=== PATIENT | male | born 1960 | race African-American/Black ===

== ENCOUNTER 2017-09-18 08:35 | Emergency (ER) | payer OTHER ==
[~2017-09-18] VITALS: Ht 172.7 cm; Wt 72.6 kg
[~2017-09-18 08:35] MED LIST: NOHOMEMEDICATIONS
[2017-09-18 09:00] VITALS: BP 141/93
== END 2017-09-18 09:01 | disposition home or self-care (01) ==
LOC: ER 08:35
DX: S01.112D Laceration without foreign body of left eyelid and periocular area, subsequent encounter (principal); X58.XXXD Exposure to other specified factors, subsequent encounter

== ENCOUNTER 2017-10-26 10:56 | Emergency (ER) | payer OTHER ==
[~2017-10-26] VITALS: Ht 172.7 cm; Wt 77.1 kg
[2017-10-26 12:22] LABS: HEMATOCRIT 40.4 % (42.0-52.0); HEMOGLOBIN 14.1 gm/dL (14.0-18.0); MCH 34.3 pg (26.0-34.0); MCHC 34.8 g/dL (28.0-37.0); MCV 98.6 fL (80.0-100.0); PLATELET COUNT 182 thou/uL (150-400); RDW 13.9 % (10.5-14.5); WBC 3.4 thou/uL (4.0-11.0)
[2017-10-26 12:40] LABS: CREATININE 0.9 mg/dL (0.7-1.3); POTASSIUM 4.4 mmol/L (3.5-5.1)
[2017-10-26 12:44] LABS: ALBUMIN 4.1 g/dL (3.4-5.0); TOTAL BILIRUBIN 0.4 mg/dL (<0.1-1.0)
[2017-10-26 12:55] LABS: ABSOLUTE NEUTROPHILS 2.4 thou/uL (1.4-8.2)
[2017-10-26] MEDS ORDERED: NAPROSYN500 MG PO (12:58)
[2017-10-26 13:03] VITALS: BP 126/90
== END 2017-10-26 13:05 | disposition home or self-care (01) ==
LOC: ER 10:56
PROVIDERS: Physician Assistant
DX: M79.601 Pain in right arm (principal); M25.552 Pain in left hip; F17.210 Nicotine dependence, cigarettes, uncomplicated

== ENCOUNTER 2017-11-16 02:30 | Emergency (ER) | payer OTHER ==
[~2017-11-16] VITALS: Ht 172.7 cm; Wt 72.6 kg
[~2017-11-16 02:30] MED LIST changes: +NAPROSYN500 MG PO
[2017-11-16] MEDS ORDERED: NAPROSYN500 MG PO (03:09)
[2017-11-16 03:36] VITALS: BP 125/86
== END 2017-11-16 03:37 | disposition home or self-care (01) ==
LOC: ER 02:30
DX: M67.441 Ganglion, right hand (principal); F10.129 Alcohol abuse with intoxication, unspecified; M25.511 Pain in right shoulder; F17.210 Nicotine dependence, cigarettes, uncomplicated

== ENCOUNTER → 2018-01-01 | Emergency (ER) | payer OTHER ==
[~2018-01-01] VITALS: Ht 172.7 cm; Wt 72.6 kg
[2018-01-01 06:28] VITALS: BP 142/76
== END ==
LOC: ER 03:37
DX: S02.2XXA Fracture of nasal bones, initial encounter for closed fracture (principal); S00.12XA Contusion of left eyelid and periocular area, initial encounter; M25.552 Pain in left hip; F17.210 Nicotine dependence, cigarettes, uncomplicated; Y04.2XXA Assault by strike against or bumped into by another person, initial encounter; Y93.89 Activity, other specified; Y92.89 Other specified places as the place of occurrence of the external cause; Y99.8 Other external cause status

== ENCOUNTER 2018-08-04 12:05 | Emergency (ER) | payer OTHER ==
[~2018-08-04] VITALS: Ht 172.7 cm; Wt 72.6 kg
[2018-08-04 13:47] LABS: URINE BILIRUBIN NEGATIVE (Negative); URINE BLOOD NEGATIVE (Negative); URINE CLARITY CLEAR; URINE COLOR YELLOW; URINE GLUCOSE-RANDOM* NEGATIVE (Negative); URINE KETONES NEGATIVE (Negative); URINE LEUKOCYTES NEGATIVE (Negative); URINE NITRITE NEGATIVE (Negative); URINE PROTEIN (DIPSTICK) NEGATIVE (Negative); URINE SPECIFIC GRAVITY <= 1.005 (1.005-1.035); URINE UROBILINOGEN 0.2 E.U./dl (0.2-1.0)
[2018-08-04] MEDS ORDERED: HYDROCODONE-AP1 EAC6 PO (14:04)
[2018-08-04] MEDS ORDERED: NAPROSYN500 MG PO (14:04)
[2018-08-04] MEDS ORDERED: LIDOCAINE PAIN1 EACH TOP (14:04)
[2018-08-04 14:23] VITALS: BP 140/95
== END 2018-08-04 14:23 | disposition home or self-care (01) ==
LOC: ER 12:05
PROVIDERS: Physician Assistant
DX: S22.31XA Fracture of one rib, right side, initial encounter for closed fracture (principal); S70.02XA Contusion of left hip, initial encounter; S39.012A Strain of muscle, fascia and tendon of lower back, initial encounter; F17.210 Nicotine dependence, cigarettes, uncomplicated; W01.10XA Fall on same level from slipping, tripping and stumbling with subsequent striking against unspecified object, initial encounter; Y93.89 Activity, other specified; Y92.89 Other specified places as the place of occurrence of the external cause; Y99.8 Other external cause status

== ENCOUNTER 2018-08-14 18:27 | Emergency (ER) | payer OTHER ==
[~2018-08-14] VITALS: Ht 172.7 cm; Wt 72.7 kg
[~2018-08-14 18:27] MED LIST changes: +HYDROCODONE-AP1 EAC6 PO; +LIDOCAINE PAIN1 EACH TOP
[2018-08-14 19:44] LABS: HEMATOCRIT 39.3 % (42.0-52.0); HEMOGLOBIN 13.5 gm/dL (14.0-18.0); MCH 33.5 pg (26.0-34.0); MCHC 34.4 g/dL (28.0-37.0); MCV 97.5 fL (80.0-100.0); PLATELET COUNT 132 thou/uL (150-400); RBC 4.03 mil/uL (4.50-6.00); RDW 13.7 % (10.5-14.5); WBC 5.8 thou/uL (4.0-11.0)
[2018-08-14 19:58] LABS: CALCIUM 9.4 mg/dL (8.5-10.1); POTASSIUM 3.9 mmol/L (3.5-5.1)
[2018-08-14 20:03] LABS: ABSOLUTE NEUTROPHILS 4.9 thou/uL (1.4-8.2); ANISOCYTOSIS 1+
[2018-08-14 20:12] LABS: ALBUMIN 3.5 g/dL (3.4-5.0); TOTAL BILIRUBIN 0.5 mg/dL (<0.1-1.0); TOTAL PROTEIN 8.2 g/dL (6.4-8.2)
[2018-08-14] MEDS ORDERED: ZPAK PO (21:00)
[2018-08-14 21:28] VITALS: BP 108/56
[2018-08-15] MEDS ORDERED: VENTOLIN HFA 1818 GM INH (04:34)
[2018-08-15] MEDS ORDERED: AUGMENTIN 500-1 EACH PO (04:34)
[2018-08-15] MEDS ORDERED: PREDNISONE 20 M20 MG PO (04:34)
== END 2018-08-14 21:20 | disposition home or self-care (01) ==
LOC: ER 18:27
PROVIDERS: Nurse Practitioner
DX: J18.9 Pneumonia, unspecified organism (principal); F17.210 Nicotine dependence, cigarettes, uncomplicated

== ENCOUNTER 2018-08-15 02:00 | Emergency (ER) | payer OTHER ==
[~2018-08-15] VITALS: Ht 172.7 cm; Wt 72.6 kg
--- NOTE | ~2018-08-15 | EKG ---
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 : 1960 Requested By: Michael Chan Order Number: [id number] MD: Measurements Intervals [place] Rate: 78 P: 79 MN: 164 QRS: 79 QRSD: 99 T: 39 QT: 389 QTc: 444 Interpretive Statements Sinus rhythm Low voltage, extremity leads Minimal ST elevation, inferior leads Baseline wander in lead(s) V6 Compared to ECG 01/26/2018 12:06:50 ST (T wave) deviation now present [email or web address] ��������������������������������������������� ���������������������������������������� By: ��������������������������������������������� 3 030 Epiphany Epiphany, /EPI
[~2018-08-15 02:00] MED LIST changes: +ZPAK PO
[2018-08-15 03:28] LABS: BE(vivo) 1.1 mmol/L (-2 to +3); HCO3 25.5 mmol/L (22.0-26.0); PCO2 39.6 mmHg (35.0-45.0); PO2 68.8 mmHg (80.0-100.0); pH 7.426 (7.360-7.450); sO2 94.2 % (92.0-98.0)
[2018-08-15 04:26] LABS: ABSOLUTE NEUTROPHILS 4.8 thou/uL (1.4-8.2); BASOPHILS 0.1 % (0.0-2.0); HEMATOCRIT 36.6 % (42.0-52.0); HEMOGLOBIN 12.9 gm/dL (14.0-18.0); LYMPHOCYTES 6.4 % (24.0-44.0); MCH 34.2 pg (26.0-34.0); MCHC 35.1 g/dL (28.0-37.0); MCV 97.3 fL (80.0-100.0); MONOCYTES 5.8 % (1.0-8.0); PLATELET COUNT 134 thou/uL (150-400); POLYS 87.7 % (36.0-66.0); RBC 3.77 mil/uL (4.50-6.00); RDW 13.2 % (10.5-14.5); WBC 5.4 thou/uL (4.0-11.0)
[2018-08-15 04:28] LABS: URINE BILIRUBIN NEGATIVE (Negative); URINE BLOOD NEGATIVE (Negative); URINE CLARITY CLEAR; URINE COLOR YELLOW; URINE GLUCOSE-RANDOM* NEGATIVE (Negative); URINE KETONES 1+ (Negative); URINE LEUKOCYTES-REFLEX NEGATIVE (Negative); URINE NITRITE-REFLEX NEGATIVE (Negative); URINE PROTEIN (DIPSTICK) TRACE (Negative); URINE SPECIFIC GRAVITY 1.025 (1.005-1.035)
[2018-08-15] MEDS ORDERED: VENTOLIN HFA 1818 GM INH (04:34)
[2018-08-15] MEDS ORDERED: AUGMENTIN 500-1 EACH PO (04:34)
[2018-08-15] MEDS ORDERED: PREDNISONE 20 M20 MG PO (04:34)
[2018-08-15 04:36] LABS: ANION GAP 13 mmol/L (7-16); BUN 11 mg/dL (7-18); CALCIUM 8.5 mg/dL (8.5-10.1); CHLORIDE 97 mmol/L (98-107); CO2 25 mmol/L (21-32); CREATININE 0.8 mg/dL (0.7-1.3); GLUCOSE 167 mg/dL (74-106); POTASSIUM 3.5 mmol/L (3.5-5.1); SODIUM 135 mmol/L (136-145)
[2018-08-15 04:37] LABS: AMP/METHAMP Negative (Negative); BARBITURATES Negative (Negative); BENZODIAZEPINES POSITIVE (Negative); COCAINE Negative (Negative); METHADONE Negative (Negative); OPIATES Negative (Negative); PCP Negative (Negative)
[2018-08-15 04:46] LABS: TROPONIN-I <0.06 ng/mL (<0.06)
[2018-08-15 06:56] VITALS: BP 122/78
== END 2018-08-15 06:57 | disposition home or self-care (01) ==
LOC: ER 02:00
PROVIDERS: Emergency Medicine
DX: J44.9 Chronic obstructive pulmonary disease, unspecified (principal); J18.9 Pneumonia, unspecified organism; F10.10 Alcohol abuse, uncomplicated; F17.210 Nicotine dependence, cigarettes, uncomplicated; Y90.0 Blood alcohol level of less than 20 mg/100 ml

== ENCOUNTER 2018-12-26 00:10 | Emergency (ER) | payer OTHER ==
[~2018-12-26] VITALS: Ht 172.7 cm; Wt 77.1 kg
[~2018-12-26 00:10] MED LIST changes: +AUGMENTIN 500-1 EACH PO; +PREDNISONE 20 M20 MG PO; +VENTOLIN HFA 1818 GM INH
[2018-12-26 02:55] LABS: HEMATOCRIT 40.8 % (42.0-52.0); HEMOGLOBIN 13.8 gm/dL (14.0-18.0); MCH 34.2 pg (26.0-34.0); MCHC 33.9 g/dL (28.0-37.0); PLATELET COUNT 152 thou/uL (150-400); RBC 4.04 mil/uL (4.50-6.00); RDW 14.8 % (10.5-14.5); WBC 2.1 thou/uL (4.0-11.0)
[2018-12-26 02:58] LABS: ANION GAP 15 mmol/L (7-16); BUN 6 mg/dL (7-18); CALCIUM 8.9 mg/dL (8.5-10.1); CHLORIDE 102 mmol/L (98-107); CO2 24 mmol/L (21-32); CREATININE 0.9 mg/dL (0.7-1.3); GLUCOSE 93 mg/dL (74-106); POTASSIUM 3.7 mmol/L (3.5-5.1); SODIUM 141 mmol/L (136-145)
[2018-12-26 03:06] LABS: TROPONIN-I <0.06 ng/mL (<0.06)
[2018-12-26 04:02] LABS: ABSOLUTE NEUTROPHILS 0.9 thou/uL (1.4-8.2)
[2018-12-26 04:04] LABS: ANISOCYTOSIS 1+; MACROCYTES 2+; PLATELET ESTIMATE NORMAL; POIKILOCYTOSIS 1+; POLYCHROMASIA 1+
[2018-12-26 04:29] VITALS: BP 88/54
--- NOTE | 2018-12-26 16:03 | EKG ---
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1960 Requested By: Catherine Lala Order Number: [id number] MD: Logan Odmo Measurements Intervals [place] Rate: 75 P: 91 CO: 181 QRS: 85 QRSD: 111 T: 63 QT: 397 QTc: 444 Interpretive Statements Sinus rhythm Minimal ST elevation, inferior leads Compared to ECG 08/15/2018 03:04:18 ST (T wave) deviation now present Electronically Signed On 12-26-2018 16:03:36 CDT by Logan Odom [email or web address] ��������������������������������������������� <ELECTRONICALLY SIGNED> ���������������������������������������� By: Logan Odom MD ��������������������������������������������� 12/26/18 1603 0017 001 Logan Odom MD /SANDRA
== END 2018-12-26 04:30 | disposition home or self-care (01) ==
LOC: ER 00:10
PROVIDERS: Emergency Medicine
DX: R07.89 Other chest pain (principal); F17.210 Nicotine dependence, cigarettes, uncomplicated

== ENCOUNTER 2019-01-06 23:53 | Emergency (ER) | payer OTHER ==
[~2019-01-06] VITALS: Ht 172.7 cm; Wt 72.6 kg
[2019-01-07] MEDS ORDERED: NITROGLYCERIN0.4 MG SUBLING (00:42)
[2019-01-07 00:53] LABS: HEMATOCRIT 39.7 % (42.0-52.0); HEMOGLOBIN 13.8 gm/dL (14.0-18.0); MCH 34.6 pg (26.0-34.0); MCHC 34.7 g/dL (28.0-37.0); MCV 99.7 fL (80.0-100.0); PLATELET COUNT 139 thou/uL (150-400); RBC 3.98 mil/uL (4.50-6.00); RDW 14.3 % (10.5-14.5); WBC 2.6 thou/uL (4.0-11.0)
[2019-01-07 01:00] LABS: ANION GAP 12 mmol/L (7-16); BUN 10 mg/dL (7-18); CALCIUM 8.9 mg/dL (8.5-10.1); CHLORIDE 101 mmol/L (98-107); CO2 24 mmol/L (21-32); CREATININE 0.9 mg/dL (0.7-1.3); GLUCOSE 85 mg/dL (74-106); SODIUM 137 mmol/L (136-145)
[2019-01-07 01:08] LABS: TROPONIN-I <0.06 ng/mL (<0.06)
[2019-01-07 01:16] LABS: ATYPICAL LYMPHS 1 %; NUCLEATED RBCS 2 /100WBC
[2019-01-07 03:02] VITALS: BP 102/75
--- NOTE | 2019-01-08 09:07 | EKG ---
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 Tester: joss cid : 1960 Requested By: Satish Reeves Order Number: [id number] MD: Villa Rehman Measurements Intervals [place] Rate: 66 P: 72 NH: 191 QRS: 79 QRSD: 106 T: 56 QT: 414 QTc: 434 Interpretive Statements Sinus rhythm Minimal, diffuse ST segment elevation Compared to ECG 12/26/2018 00:17:00 No significant change was found Electronically Signed On 01-08-2019 9:06:57 CDT by Villa Rehman [email or web address] ��������������������������������������������� <ELECTRONICALLY SIGNED> ���������������������������������������� By: Villa Rehman MD, [facility] ��������������������������������������������� 01/08/19 0906 0004 0004 Villa Rehman MD, FACC /EPI
== END 2019-01-07 03:07 | disposition home or self-care (01) ==
LOC: ER 23:53
PROVIDERS: Emergency Medicine
DX: R07.9 Chest pain, unspecified (principal); F10.129 Alcohol abuse with intoxication, unspecified; F17.210 Nicotine dependence, cigarettes, uncomplicated; Z79.899 Other long term (current) drug therapy

== ENCOUNTER 2019-03-01 11:58 | Emergency (ER) | payer OTHER ==
[~2019-03-01] VITALS: Ht 172.7 cm; Wt 68.0 kg
[~2019-03-01 11:58] MED LIST changes: +NITROGLYCERIN0.4 MG SUBLING
[2019-03-01 12:13] LABS: HEMATOCRIT 38.5 % (42.0-52.0); HEMOGLOBIN 13.1 gm/dL (14.0-18.0); MCH 34.1 pg (26.0-34.0); MCV 100.5 fL (80.0-100.0); PLATELET COUNT 163 thou/uL (150-400); RBC 3.83 mil/uL (4.50-6.00); RDW 13.3 % (10.5-14.5)
[2019-03-01 12:22] LABS: ANION GAP 16 mmol/L (7-16); BUN 10 mg/dL (7-18); CHLORIDE 102 mmol/L (98-107); CO2 22 mmol/L (21-32); CREATININE 0.8 mg/dL (0.7-1.3); GLUCOSE 78 mg/dL (74-106); POTASSIUM 3.9 mmol/L (3.5-5.1); SODIUM 140 mmol/L (136-145)
[2019-03-01 12:32] LABS: ALBUMIN 3.7 g/dL (3.4-5.0); SGOT 46 U/L (15-37); SGPT 26 U/L (30-65); TOTAL BILIRUBIN 0.3 mg/dL (<0.1-1.0); TOTAL PROTEIN 7.6 g/dL (6.4-8.2); TROPONIN-I <0.06 ng/mL (<0.06)
[2019-03-01 12:52] LABS: ABSOLUTE NEUTROPHILS 1.4 thou/uL (1.4-8.2)
[2019-03-01 12:53] LABS: ANISOCYTOSIS SLIGHT
[2019-03-01 13:48] VITALS: BP 102/64
--- NOTE | 2019-03-02 17:13 | EKG ---
[facility] [place] [employer] [address] ELECTROCARDIOGRAM REPORT Name: JN MOTA Room #: DEP 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[place] : 1960 Requested By: Chey German Order Number: [id number] MD: Villa Rehman Measurements Intervals [place] Rate: 77 P: 77 NH: 172 QRS: 84 QRSD: 104 T: 56 QT: 388 QTc: 440 Interpretive Statements Sinus rhythm Minimal diffuse ST segment elevation, probably early repolarization Compared to ECG 01/07/2019 00:04:16 No significant changes Electronically Signed On 03-02-2019 17:13:30 CDT by Villa Rehman [email or web address] ��������������������������������������������� <ELECTRONICALLY SIGNED> ���������������������������������������� By: Villa Rehman MD, [facility] ��������������������������������������������� 03/02/19 1713 1159 1159 Villa Rehman MD, FACC /EPI
== END 2019-03-01 13:49 | disposition home or self-care (01) ==
LOC: ER 11:58
PROVIDERS: Emergency Medicine Emergency Medical Services
DX: R07.89 Other chest pain (principal); M25.552 Pain in left hip; G89.29 Other chronic pain; F17.210 Nicotine dependence, cigarettes, uncomplicated